=== PATIENT | male | born 1965 | race Caucasian/White ===

== ENCOUNTER 2017-11-29 09:04 | Emergency (ER) | payer BC ==
[2017-11-29 09:08] VITALS: RESP 18
[2017-11-29] MEDS ORDERED: SODIUM CHLORIDE 0.9% 1,000 ML IV STA ×2 (09:19)
[2017-11-29] MEDS ORDERED: ONDANSETRON 4 MG/2 ML VIAL IVP STA (09:19)
[2017-11-29] MEDS ORDERED: RX INFO: IV CONTRAST WAS GIVEN 1 EACH MISC MISCELLANE PRN (09:19)
[2017-11-29] MEDS ORDERED: MORPHINE SULFATE 4MG/4ML SYRG IV STA (09:19)
[2017-11-29] MEDS ORDERED: KETOROLAC 30 MG/ML 1 ML VIAL IVP STA (09:19)
--- NOTE | 2017-11-29 09:22 | ED ---
Abdominal Pain HPI - General Chief Complaint: Abdominal Pain Stated Complaint: appendicitis Time Seen by Provider: 11/29/17 09:11 Source: patient, RN notes reviewed, old records reviewed Mode of arrival: ambulatory Limitations: no limitations - History of Present Illness Initial Comments: 52-year-old male presents emergency Department chief complaint right lower quadrant abdominal pain for the past 4 days. He reports he went to a clinic and encouraged him to come here on . He states that he wanted to go home. He states the pain subsided per one day but then returned Wednesday and Wednesday into today. He reports he felt chilled but has no fevers. He's had normal bowel movements, normal urination. Concern for appendicitis. He states the pain starts in his umbilical region and radiates towards the right lower quadrant. Worse with going over bumps in the car. Patient with his history of umbilical hernia and associated with a follow-up with a surgeon in December. He reports that he has had no previous surgeries. He states that this pain is different than his hernia pain for the past. - Related Data Home Medications Medication Instructions Recorded Confirmed Aspirin 81 mg PO DAILY 11/29/17 11/29/17 [id number] 2 tab PO Q4HR PRN 11/29/17 11/29/17 [Excedrin] Lisinopril [Zestril] 10 mg PO DAILY 11/29/17 11/29/17 Lovastatin [Mevacor] 20 mg PO DAILY 11/29/17 11/29/17 amLODIPine [Norvasc] 10 mg PO DAILY 11/29/17 11/29/17 Previous Rx's Medication Instructions Recorded Bisacodyl [Dulcolax] 10 mg PO ONCE #20 tablet. 11/29/17 Allergies Allergy/AdvReac Type Severity Reaction Status Date / Time tetracycline Allergy Rash/Hives Verified 11/29/17 09:24 MOLINA SPROUTS Allergy Unknown Uncoded 11/29/17 09:24 Review of Systems ROS Statement: Those systems with pertinent positive or pertinent negative responses have been documented in the HPI. ROS Other: All systems not noted in ROS Statement are negative. Past Medical History Past Medical History: No Reported History History of Any Multi-Drug Resistant Organisms: None Reported Past Surgical History: No Surgical Hx Reported Past Psychological History: No Psychological Hx Reported Smoking Status: Current every day smoker Past Alcohol Use History: Rare Past Drug Use History: None Reported General Exam - General Exam Comments Initial Comments: 52-year-old male. Alert and oriented. No distress. Limitations: no limitations General appearance: alert, in no apparent distress Head exam: Present: atraumatic, normocephalic, normal inspection Eye exam: Present: normal appearance, PERRL, EOMI. Absent: scleral icterus, conjunctival injection, periorbital swelling ENT exam: Present: normal exam, mucous membranes moist Neck exam: Present: normal inspection. Absent: tenderness, meningismus, lymphadenopathy Respiratory exam: Present: normal lung sounds bilaterally. Absent: respiratory distress, wheezes, rales, rhonchi, stridor Cardiovascular Exam: Present: regular rate, normal rhythm, normal heart sounds. Absent: systolic murmur, diastolic murmur, rubs, gallop, clicks GI/Abdominal exam: Present: soft, tenderness (Patient has significant right lower quadrant tenderness.), normal bowel sounds. Absent: distended, guarding, rebound, rigid Extremities exam: Present: normal inspection, full ROM, normal capillary refill. Absent: tenderness, pedal edema, joint swelling, calf tenderness Back exam: Present: normal inspection, full ROM Neurological exam: Present: alert, oriented X3, CN II-XII intact Psychiatric exam: Present: normal affect, normal mood Skin exam: Present: warm, dry, intact, normal color. Absent: rash Course Vital Signs 11/29/17 11/29/17 11/29/17 09:05 10:36 12:21 Temperature 99 F 97.7 F 97.8 F Pulse Rate 107 H 87 78 Respiratory 18 18 18 Rate Blood Pressure 156/87 120/60 121/59 O2 Sat by Pulse 94 L 94 L 95 Oximetry Medical Decision Making - Medical Decision Making 52-year-old male presents emergency Department chief complaint right lower quadrant abdominal pain for the past 4 days. He reports he went to a clinic and encouraged him to come here on . He states that he wanted to go home. He states the pain subsided per one day but then returned Wednesday and Wednesday into today. He reports he felt chilled but has no fevers. He's had normal bowel movements, normal urination. Patient has RLQ tenderness. CT scan was completed and shows no appendicitis. He is afebrile. Discussed Dr. Noel. Patient will be discharged home for follow up by PCP in one day. Disucssed strict return parameters such as fever or worsening pain. All questions answered and return parameters discussed. - Lab Data Result diagrams: 11/29/17 09:20 11/29/17 09:20 Lab Results 11/29/17 11/29/17 11/29/17 Range/Units 09:20 09:20 09:20 WBC 14.2 H (3.8-10.6) k/uL RBC 4.56 (4.30-5.90) m/uL Hgb 13.8 (13.0-17.5) gm/dL Hct 40.7 (39.0-53.0) % MCV 89.2 (80.0-100.0) fL MCH 30.2 (25.0-35.0) pg MCHC 33.8 (31.0-37.0) g/dL RDW 12.8 (11.5-15.5) % Plt Count 358 (150-450) k/uL Neutrophils % 70 % Lymphocytes % 24 % Monocytes % 4 % Eosinophils % 1 % Basophils % 0 % Neutrophils # 10.0 H (1.3-7.7) k/uL Lymphocytes # 3.3 (1.0-4.8) k/uL Monocytes # 0.5 (0-1.0) k/uL Eosinophils # 0.1 (0-0.7) k/uL Basophils # 0.1 (0-0.2) k/uL Sodium 142 (137-145) mmol/L Potassium 3.6 (3.5-5.1) mmol/L Chloride 106 (98-107) mmol/L Carbon Dioxide 23 (22-30) mmol/L Anion Gap 13 mmol/L BUN 7 L (9-20) mg/dL Creatinine 0.68 (0.66-1.25) mg/dL Est GFR (CKD-EPI)AfAm >90 (>60 ml/min/1.73 sqM) Est GFR (CKD-EPI)NonAf >90 (>60 ml/min/1.73 sqM) Glucose 85 (74-99) mg/dL Plasma Lactic Acid Antolin 1.0 (0.7-2.0) mmol/L Calcium 9.5 (8.4-10.2) mg/dL Total Bilirubin 0.4 (0.2-1.3) mg/dL AST 26 (17-59) U/L ALT 38 (21-72) U/L Alkaline Phosphatase 89 (38-126) U/L Total Protein 7.0 (6.3-8.2) g/dL Albumin 4.1 (3.5-5.0) g/dL Amylase 48 (30-110) U/L Lipase 73 (23-300) U/L Urine Color Urine Appearance (Clear) Urine pH (5.0-8.0) Ur Specific [place] (1.001-1.035) Urine Protein (Negative) Urine Glucose (UA) (Negative) Urine Ketones (Negative) Urine Blood (Negative) Urine Nitrite (Negative) Urine Bilirubin (Negative) Urine Urobilinogen (<2.0) mg/dL Ur Leukocyte Esterase (Negative) 11/29/17 Range/Units 09:20 WBC (3.8-10.6) k/uL RBC (4.30-5.90) m/uL Hgb (13.0-17.5) gm/dL Hct (39.0-53.0) % MCV (80.0-100.0) fL MCH (25.0-35.0) pg MCHC (31.0-37.0) g/dL RDW (11.5-15.5) % Plt Count (150-450) k/uL Neutrophils % % Lymphocytes % % Monocytes % % Eosinophils % % Basophils % % Neutrophils # (1.3-7.7) k/uL Lymphocytes # (1.0-4.8) k/uL Monocytes # (0-1.0) k/uL Eosinophils # (0-0.7) k/uL Basophils # (0-0.2) k/uL Sodium (137-145) mmol/L Potassium (3.5-5.1) mmol/L Chloride (98-107) mmol/L Carbon Dioxide (22-30) mmol/L Anion Gap mmol/L BUN (9-20) mg/dL Creatinine (0.66-1.25) mg/dL Est GFR (CKD-EPI)AfAm (>60 ml/min/1.73 sqM) Est GFR (CKD-EPI)NonAf (>60 ml/min/1.73 sqM) Glucose (74-99) mg/dL Plasma Lactic Acid Antolin (0.7-2.0) mmol/L Calcium (8.4-10.2) mg/dL Total Bilirubin (0.2-1.3) mg/dL AST (17-59) U/L ALT (21-72) U/L Alkaline Phosphatase (38-126) U/L Total Protein (6.3-8.2) g/dL Albumin (3.5-5.0) g/dL Amylase (30-110) U/L Lipase (23-300) U/L Urine Color Colorless Urine Appearance Clear (Clear) Urine pH 6.5 (5.0-8.0) Ur Specific [place] 1.001 (1.001-1.035) Urine Protein Negative (Negative) Urine Glucose (UA) Negative (Negative) Urine Ketones Negative (Negative) Urine Blood Negative (Negative) Urine Nitrite Negative (Negative) Urine Bilirubin Negative (Negative) Urine Urobilinogen <2.0 (<2.0) mg/dL Ur Leukocyte Esterase Negative (Negative) - Radiology Data Radiology results: report reviewed Colonint interpostion anterior to left lobe of liver. Descending and sigmoid colon are decompressed, difficult to exclude mucosal abnormality. Non specific findings described. Read by Dr. Mondragon. Disposition Clinical Impression: RLQ abdominal pain Disposition: HOME SELF-CARE Condition: Good Instructions: Abdominal Pain (ED) Additional Instructions: Patient is return to the emergency department if any alarming signs or symptoms occur including fever or worsening abdominal pain. Follow-up with primary care provider in next 1-2 days. Prescriptions: Bisacodyl [Dulcolax] 10 mg PO ONCE #20 tablet.dr Is patient prescribed a controlled substance at discharge?: No If prescribed controlled substance>3 days was MAPS reviewed?: No When asked, does pt state using other controlled substances?: No Referrals: Josr Grande MD [Primary Care Provider] - 1-2 days Time of Disposition: 12:08
[2017-11-29 09:40] LABS: Basophils # (A) 0.1 k/uL (0-0.2); Basophils % (A) 0 %; Eosinophils # (A) 0.1 k/uL (0-0.7); Eosinophils % (A) 1 %; HCT 40.7 % (39.0-53.0); HGB 13.8 gm/dL (13.0-17.5); Lymphocytes # (A) 3.3 k/uL (1.0-4.8); Lymphocytes % (A) 24 %; MCH 30.2 pg (25.0-35.0); MCHC 33.8 g/dL (31.0-37.0); MCV 89.2 fL (80.0-100.0); Mean Platelet Volume 6.5; Monocytes # (A) 0.5 k/uL (0-1.0); Monocytes % (A) 4 %; Neutrophils % (A) 70 %; Platelet Count 358 k/uL (150-450); RBC 4.56 m/uL (4.30-5.90); RDW 12.8 % (11.5-15.5); WBC 14.2 k/uL (3.8-10.6)
[2017-11-29 09:43] LABS: Appearance,Urine Clear (Clear); Bilirubin,Urine Negative (Negative); Blood,Urine Negative (Negative); Color,Urine Colorless; Glucose,Urine (UA) Negative (Negative); Ketones,Urine Negative (Negative); Leukocyte Esterase,Urine Negative (Negative); Nitrite,Urine Negative (Negative); PH, Urine 6.5 (5.0-8.0); Protein,Urine Negative (Negative); Specific Gravity,Urine 1.001 (1.001-1.035); Urobilinogen,Urine <2.0 mg/dL (<2.0)
[2017-11-29 09:51] LABS: ALT 38 U/L (21-72); AST 26 U/L (17-59); Albumin 4.1 g/dL (3.5-5.0); Alkaline Phosphatase 89 U/L (38-126); Amylase 48 U/L (30-110); Anion Gap 13 mmol/L; Blood Urea Nitrogen 7 mg/dL (9-20); Calcium 9.5 mg/dL (8.4-10.2); Carbon Dioxide 23 mmol/L (22-30); Chloride 106 mmol/L (98-107); Glucose 85 mg/dL (74-99); Lipase 73 U/L (23-300); Potassium 3.6 mmol/L (3.5-5.1); Sodium 142 mmol/L (137-145); Total Bilirubin 0.4 mg/dL (0.2-1.3)
--- NOTE | 2017-11-29 11:05 | CT ---
EXAMINATION TYPE: CT abdomen pelvis w con DATE OF EXAM: 11/29/2017 COMPARISON: NONE HISTORY: Right lower quadrant pain x [address] DLP: 1693 mGycm Automated exposure control for dose reduction was used. TECHNIQUE: Helical acquisition of images from the lung bases through the pelvis have been completed. CONTRAST: Performed without Oral Contrast and with IV Contrast, patient injected with 100 mL of Isovue M300. FINDINGS: Possible small hiatal hernia present. There is an umbilical hernia containing fat. LUNG BASES: No significant abnormality is appreciated. Calcified granuloma present on axial image 1 r ight lower lobe. AORTA: No significant abnormality is appreciated. LIVER/GB: Liver shows low attenuation and is enlarged, consider hepatic steatosis, gallbladder is unr emarkable. PANCREAS: No significant abnormality is seen. SPLEEN: No significant abnormality is seen. ADRENALS: No significant abnormality is seen. KIDNEYS: Punctate nonobstructive calculus is present in the upper pole collecting system region of th e right kidney, cortical cyst present at the lower pole of the left kidney measuring approximately 16 mm. REPRODUCTIVE ORGANS: Prostate shows some associated calcifications. BOWEL: Colonic interposition present anterior to the liver left lobe of liver. Descending and sigmoi d colon are decompressed, difficult to exclude mucosal abnormality. FREE AIR: No Free Air visible. ASCITES: None visible. PELVIC ADENOPATHY: None visualized. RETROPERITONEAL ADENOPATHY: No Retroperitoneal Adenopathy visible. URINARY BLADDER: Mildly thickened wall could be due to chronic outlet obstruction. OSSEOUS STRUCTURES: No significant abnormality is seen. IMPRESSION: NONSPECIFIC FINDINGS DESCRIBED ABOVE.
[2017-11-29 12:22] VITALS: BP 121/59; PULSE 78; TEMP 97.8
== END 2017-11-29 12:26 | disposition home or self-care (01) ==
LOC: EC 09:04
DX: R10.31 Right lower quadrant pain (principal); F17.200 Nicotine dependence, unspecified, uncomplicated; Z79.82 Long term (current) use of aspirin; Z79.899 Other long term (current) drug therapy; Z88.1 Allergy status to other antibiotic agents; Z91.018 Allergy to other foods
CPT/HCPCS: 99284; 96374; 96375; 96361 ×2; 36415; 80053; 82150; 83605; 83690; 85025; 81003; 87040; 74177; J2405; J1885; Q9967

== ENCOUNTER → 2018-02-04 | Day surgery (SDC) | payer BC ==
[2018-02-01 14:58] VITALS: BMI 32.3
[~2018-02-04] MED LIST: ALBUTEROL NEBULIZED 2.5 MG/3 ML INHALATION STA; BUPIVACAINE (PF) 0.5% 30 ML VIAL SQ ONE; DEXAMETHASONE SOD PHOSPHATE 10 MG/ML 1 ML VIAL IV ONE; GLYCOPYRROLATE 0.2 MG/ML 2 ML VIAL ONE; HEPARIN SODIUM,PORCINE 5,000 UNIT/ML 1 ML VIAL SQ ONE; HYDROcodone/APAP 5-325MG 1 EACH TAB PO ONE; IBUPROFEN IV 400 MG in SODIUM CHLORIDE 0.9% 250 ML IV ONE; LIDOCAINE 1% 20 ML VIAL (10MG/ML) FOR IV START INTRADERMA PRN; LIDOCAINE 1% INJ 10MG/ML (20 ML MDV) ONE; MIDAZOLAM 2 MG/2 ML VIAL IV PRN; MIDAZOLAM 2 MG/2 ML VIAL ONE; NEOSTIGMINE 1 MG/ML 10 ML VIAL ONE; ONDANSETRON 4 MG/2 ML VIAL IVP ONE; PROPOFOL 10 MG/ML 20 ML VIAL IV ONE; ROCURONIUM BROMIDE 10 MG/ML 10 ML VIAL IV ONE; SCOPOLAMINE 1.5MG/72HR PATCH TRANSDERM ONE; SUCCINYLCHOLINE CHLORIDE VIAL 200 MG/10 ML VIAL IV ONE; ceFAZolin IN SWFI 2 GM/20 ML SYRINGE IVP ONE; fentaNYL (PF) 50 MCG/ML 2 ML AMP ONE
--- NOTE | 2018-02-04 07:07 | P.GSHP ---
History of Present Illness H&P Date: 02/04/18 CHIEF COMPLAINT: Inguinal hernia, right and umbilical hernia HISTORY OF PRESENT ILLNESS: The patient is a 52-year-old male who presents with a history of swelling and pain along the right groin and umbilicus. He's noted increased swelling including pain of the area. Now he presents for repair of his inguinal hernia and umbilicus. PAST MEDICAL HISTORY: Please see list. PAST SURGICAL HISTORY: Please see list. MEDICATIONS: Please see list. ALLERGIES: Please see list. SOCIAL HISTORY: No illicit drug use FAMILY HISTORY: No reports of Crohn disease or ulcerative colitis. REVIEW OF ORGAN SYSTEMS: CONSTITUTIONAL: No reports of fevers or chills. No reports of weight loss despite prior attempts. GI: Denies any blood in stools or constipation. PHYSICAL EXAM: VITAL SIGNS: Stable GENERAL: Well-developed pleasant male in no acute distress. HEENT: No scleral icterus. Extraocular movements grossly intact. Moist buccal mucosa. NECK: Supple without lymphadenopathy. CHEST: Unlabored respirations. Equal bilateral excursions. CARDIOVASCULAR: Regular rate and rhythm. Distal 2+ pulses. ABDOMEN: Soft, nondistended. No peritoneal signs. Palpable defect of the right groin. MUSCULOSKELETAL: No clubbing, cyanosis, or edema. ASSESSMENT: 1. Inguinal hernia, right 2. Umbilical hernia PLAN: 1. Recommend proceeding with a robotic umbilical and inguinal repair with mesh with possible bilateral approach. 2. Benefits and risks of surgical intervention was discussed including possibility of open technique. 3. DVT prophylaxis. 4. Antibiotic prophylaxis. Past Medical History Past Medical History: Hyperlipidemia, Hypertension History of Any Multi-Drug Resistant Organisms: None Reported Past Surgical History: No Surgical Hx Reported Additional Past Anesthesia/Blood Transfusion Reaction / Comment(s): never had anesthesia in the past Past Psychological History: Anxiety Smoking Status: Current every day smoker Past Alcohol Use History: None Reported Past Drug Use History: None Reported - Past Family History Mother Family Medical History: No Reported History Medications and Allergies Home Medications Medication Instructions Recorded Confirmed Type amLODIPine [Norvasc] 10 mg PO QAM 11/29/17 02/01/18 History Atorvastatin [Lipitor] 20 mg PO QAM 02/01/18 02/01/18 History Lisinopril [Zestril] 10 mg PO QAM 02/01/18 02/01/18 History Allergies Allergy/AdvReac Type Severity Reaction Status Date / Time tetracycline Allergy Rash/Hives Verified 11/29/17 09:24 MOLINA SPROUTS Allergy Rash/Hives Uncoded 02/01/18 14:48
[2018-02-04] MEDS: LACTATED RINGERS 1,000 ML IV SCH (10:20)
--- NOTE | 2018-02-04 13:25 | P.PCN ---
Date of Procedure: 02/04/18 Preoperative Diagnosis: Right inguinal hernia, umbilical hernia Postoperative Diagnosis: Incarcerated right inguinal hernia, initial and direct; incarcerated umbilical hernia initial, right inguinal/scrotal lipoma Procedure(s) Performed: Excision of right inguinal lipoma, robotic-assisted repair of incarcerated right inguinal hernia with mesh, robotic-assisted repair of incarcerated umbilical hernia without mesh Anesthesia: GETA, local Surgeon: Beata Granado Estimated Blood Loss (ml): 5 Pathology: other (Incarcerated umbilical hernia, right inguinal contents and lipoma) Condition: stable Disposition: same day Operative Findings: Large incarcerated umbilical hernia with large right inguinal and scrotal inguinal lipoma, initial right indirect inguinal hernia Oversew of umbilical hernia defect 1 cm
[2018-02-04] MEDS: HYDROmorphone 0.5 MG/0.5 ML SYRINGE IVP PRN ×4 (13:26→14:10)
[2018-02-04 17:04] VITALS: BP 128/81; PULSE 88; RESP 18; TEMP 98.4
--- NOTE | 2018-02-06 23:08 | P.OP ---
Date of Procedure: 02/04/18 Description of Procedure: Date of Procedure: 02/04/18 SURGEON: DEBBIE ROBERT MD PREOPERATIVE DIAGNOSES: 1. History of right inguinal hernia 2. Umbilical hernia POSTOPERATIVE DIAGNOSES: 1. Right inguinal hernia, initial, direct, incarcerated 2. Umbilical hernia, initial, incarcerated, 1 cm 3. Right inguinal/scrotal lipoma OPERATION: 1. Robotic assisted da Pablo Xi laparoscopic right incarcerated inguinal hernia repair with ventralight ST mesh, 11.4 cm. 2. Robotic-assisted da Pablo Xi laparoscopic repair of initial incarcerated umbilical hernia 1 cm without mesh 3. Excision of incarcerated right inguinal/scrotal lipoma Anesthesia: GETA, local Estimated Blood Loss (ml): 5 Pathology: other (Incarcerated umbilical hernia, right inguinal contents and lipoma) Condition: stable Disposition: same day COMPLICATIONS: None. Operative Findings: 1. Large incarcerated umbilical hernia 2. Large right inguinal and scrotal inguinal lipoma 3. Initial right indirect inguinal hernia 4. Oversew of umbilical hernia defect 1 cm 5. Console time 61 minutes INDICATIONS: The patient is a 52-year-old gentleman who presents with history of right inguinal pain and umbilical hernia. Now presents for definitive surgical intervention. Laparoscopic versus open and robotic approaches were discussed. Benefits and risks including bleeding, infection, and injury to the vas deferens as well as sterility and chronic groin pain were reviewed. Placement of mesh was also described. Informed consent was obtained. DESCRIPTION: In the preoperative area, the patient was marked with indelible marker along the left groin. The patient was brought to the operating room and initially laid in supine position. After general induction, the abdomen had been prepped and draped in standard sterile fashion. Ioban draping was also placed. Prior to incision, a timeout protocol was confirmed with surgical team regarding patient's name including procedures to be performed and location along the left groin. Initial positioning for the robotic assisted ports were selected whereby 20 cm superior to the target anatomy, 0 degree 5 mm laparoscopic trocar entry was performed at the left upper quadrant. The abdomen was insufflated to 15 mmHg which he had tolerated well. Diagnostic laparoscopy demonstrated indirect right inguinal hernia included an incarcerated umbilical hernia. No defects were identified at the left groin. Next, along the epigastrium, 8 mm robot trocar was placed. An 8-mm robotic trocar was placed under direct visualization at the right upper quadrant. The 5 mm port was exchanged for an 8 mm trocar. All trocars were positioned 8 to 10-cm apart from each other. The [employer] robot was primed, draped, prepared for docking along the left side of the patient. I then went to the [employer] console. The mental health assistant was at bedside for exchange of the robot arms and equipment. At the right groin, a 2 cm indirect inguinal hernia was identified. The hernia sac was evaginated whereby the peritoneum was scored using Endo scissors with cautery. Once completely reduced into the abdominal cavity, the peritoneal sac of the hernia was stripped with a lipoma identified and incarcerated along the scrotum. The sac was resected and then passed off for further pathological analysis. The size of the hernia defect was 2 cm with intraoperative films obtained. Using 2-0 V-LOC the peritoneal defect of the right inguinal hernia site was closed using a pursestring suture. The defect was found to be completely closed with complete reduction of the right inguinal hernia was confirmed. As an onlay, an 11.[address] mesh by [employer] was cut in half and entered into the abdominal cavity via the 8 mm trocar. The mesh was tacked to the pelvis using 2-0 VLOC x 9-inch length sutures. Attention was brought to the umbilical hernia repair portion of the procedure. Fascial defect of 2 cm was identified at the umbilicus where an incarcerated umbilical hernia was identified also containing fat. The incarcerated contents was reduced as the peritoneal fat was cleaned from the abdominal wall. Next, hemostasis was checked with cautery. The hernia defect of 1-cm was oversewn using #1 Stratafix with fascial imbrication 3. A final endoscopic imaging was obtained. The robot was undocked from the patient's bedside. I then rescrubbed into the case. Insufflation was released from the abdominal cavity and all instruments were removed from the abdominal cavity. Additional palm pressure was applied along the right groin as well as releasing any air along the scrotum and right groin. The rest of incisions were reapproximated using 4-0 Monocryl in a running subcuticular fashion. Local anesthetic was placed along the incision including for a groin block. Incisions were cleansed using dilute hydrogen peroxide. Liquid glue was applied to the skin. At the end of the procedure, the needle, sponge and instrument counts had been verified correct by the surgical oncologist. The patient had tolerated the procedure well and was taken to the postanesthesia care unit in stable condition. Intraoperative findings were described to the patient's family.
== END | disposition home or self-care (01) ==
LOC: OR 09:46
PROVIDERS: ATTEND Surgery Plastic and Reconstructive Surgery
DX: K42.0 Umbilical hernia with obstruction, without gangrene (principal); K40.30 Unilateral inguinal hernia, with obstruction, without gangrene, not specified as recurrent; D17.72 Benign lipomatous neoplasm of other genitourinary organ; I10 Essential (primary) hypertension; E78.5 Hyperlipidemia, unspecified; F41.9 Anxiety disorder, unspecified; F17.200 Nicotine dependence, unspecified, uncomplicated; Z79.899 Other long term (current) drug therapy; Z88.1 Allergy status to other antibiotic agents; Z91.018 Allergy to other foods
CPT/HCPCS: 94640; 88302; 49650; 49653; C1781; J2250; J0330; J1644; J1100; J2710; J2405; J2001; J3010; J1741; J2704; J1170; J0690

== ENCOUNTER 2018-02-14 13:26 | Emergency (ER) | payer BC ==
--- NOTE | 2018-02-14 15:06 | ED ---
General Adult HPI - General Chief complaint: Urogenital Stated complaint: Male Time Seen by Provider: 02/14/18 13:35 Source: patient, RN notes reviewed Mode of arrival: ambulatory Limitations: no limitations - History of Present Illness Initial comments: This is a 52-year-old male who presents emergency Department stating that [address] Salinas did an inguinal hernia repair. Patient states since that time his right testicle swollen and becoming more tender. Patient states he called the office today and they told him come to the emergency department. Patient denies any abdominal pain patient denies any nausea vomiting. Patient denies any recent fever chills. Patient denies any trauma to the area. Patient denies any dysuria hematuria urinary frequency. Patient denies any urinary retention. - Related Data Home Medications Medication Instructions Recorded Confirmed amLODIPine [Norvasc] 10 mg PO DAILY 11/29/17 02/14/18 Atorvastatin [Lipitor] 20 mg PO DAILY 02/01/18 02/14/18 Lisinopril [Zestril] 10 mg PO DAILY 02/01/18 02/14/18 Aspirin EC [Ecotrin Low Dose] 81 mg PO DAILY 02/14/18 02/14/18 Allergies Allergy/AdvReac Type Severity Reaction Status Date / Time tetracycline Allergy Rash/Hives Verified 02/14/18 15:12 MOLINA SPROUTS Allergy Rash/Hives Uncoded 02/14/18 13:40 Review of Systems ROS Statement: Those systems with pertinent positive or pertinent negative responses have been documented in the HPI. ROS Other: All systems not noted in ROS Statement are negative. Past Medical History Past Medical History: Hyperlipidemia, Hypertension History of Any Multi-Drug Resistant Organisms: None Reported Past Surgical History: Hernia Repair Additional Past Surgical History / Comment(s): right inguinal hernia Additional Past Anesthesia/Blood Transfusion Reaction / Comment(s): never had anesthesia in the past Past Psychological History: Anxiety Smoking Status: Current every day smoker Past Alcohol Use History: None Reported Past Drug Use History: None Reported - Past Family History Mother Family Medical History: No Reported History General Exam - General Exam Comments Initial Comments: GENERAL Patient is well-developed and well-nourished. Patient is in mild distress. EYES Patient's pupils are equal and round. Extraocular motion is intact SKIN Unremarkable NEURO The patient is alert and oriented 3 Skin: Scrotum swollen and testicle appears to be tender. PYSCH Patient has normal interpersonal interactions. MUSCULOSKELETAL All 4 extremities have full range of motion Limitations: no limitations Course Vital Signs 02/14/18 02/14/18 13:38 16:07 Temperature 98.5 F Pulse Rate 87 78 Respiratory 18 16 Rate Blood Pressure 144/77 134/78 O2 Sat by Pulse 96 100 Oximetry Medical Decision Making - Medical Decision Making Ultrasound shows no evidence of torsion but does show bilateral hydroceles Disposition Clinical Impression: Hydrocele, bilateral Disposition: HOME SELF-CARE Condition: Good Instructions: Hydrocele (ED) Is patient prescribed a controlled substance at d/c from ED?: No Referrals: Josr Grande MD [Primary Care Provider] - 1-2 days Beata Granado MD [STAFF PHYSICIAN] - 1-2 days Time of Disposition: 16:25
--- NOTE | 2018-02-14 16:21 | US ---
EXAMINATION TYPE: US scrotum with doppler. Grayscale and color Doppler Duplex imaging performed of t leon scrotum. DATE OF EXAM: 02/14/2018 COMPARISON: NONE CLINICAL HISTORY: Pain. Right testicular swelling x 3 days with occasional pain, hernia surgery 10 da ys ago. EXAM MEASUREMENTS: TESTICLES: Right Testicle: 5.2 x 3.3 x 3.0 cm Left Testicle: 4.7 x 3.3 x 2.0 cm EPIDIDYMIS HEAD: Right Epididymis: 0.8 x 1.5 x 1.2 cm Left Epididymis: 0.9 x 1.5 x 1.2 cm Doppler performed to assess for testicular vascularity; good bilateral color flow and waveforms are s een. There is no evidence of testicular torsion. Presence of hydroceles: right 5.5cm, left 3.2cm Presence of varicoceles: no There are bilateral hydroceles Testicular echotexture is homogenous and symmetric. IMPRESSION: No evident testicular torsion. Bilateral hydroceles
[2018-02-14 16:46] VITALS: BP 157/83; PULSE 82; RESP 20; TEMP 98
== END 2018-02-14 16:45 | disposition home or self-care (01) ==
LOC: EC 13:26
DX: N43.3 Hydrocele, unspecified (principal); E78.5 Hyperlipidemia, unspecified; I10 Essential (primary) hypertension; F17.200 Nicotine dependence, unspecified, uncomplicated; Z79.82 Long term (current) use of aspirin; Z79.899 Other long term (current) drug therapy; Z88.1 Allergy status to other antibiotic agents; Z91.018 Allergy to other foods
CPT/HCPCS: 76870; 93975; 99283

== ENCOUNTER → 2018-03-29 | Outpatient (CLI) | payer BC ==
--- NOTE | 2018-03-29 09:37 | CT ---
EXAMINATION TYPE: CT abdomen pelvis wo con DATE OF EXAM: 03/29/2018 HISTORY: Rt flank pain, groin pain, recent inguinal hernia repair CT DLP: 927 mGycm. Automated Exposure Control for Dose Reduction was Utilized. TECHNIQUE: CT scan of the abdomen and pelvis is performed without oral or IV contrast. COMPARISON: CT abdomen and pelvis November 29, 2017 FINDINGS: Within the limitations of a non-contrast study, the following observations are made. LUNG BASES: Overall slight mosaic attenuation lung bases is redemonstrated. LIVER/GB: No significant abnormality is appreciated. PANCREAS: No significant abnormality is seen. SPLEEN: No significant abnormality is seen. ADRENALS: No significant abnormality is seen. KIDNEYS: There is stable 1.5 cm low dense exophytic lesion posteriorly lower pole level left kidney f avoring simple cyst Hounsfield units average 16. There is stable 2 mm calculus upper pole level right kidney coronal image 68. There is mild asymmetric left-sided hydroureter without obstructing calculu s or significant pyelocaliectasis. Bladder wall is mild to minimally thickened up to 4 to 5 mm simila r appearance to prior study. BOWEL: No suspicious small or large bowel dilatation is seen. Normal-appearing appendix from medial a spect of cecum is noted. Evaluation bowel is slightly suboptimal secondary to lack of enteric contras t. GENITAL ORGANS: Central zone calcifications are seen in slightly enlarged prostate gland bulging on b ladder base, underlying BPH causing outlet obstruction is suspected. Correlate clinically. LYMPH NODES: No greater than 1cm abdominal or pelvic lymph nodes are appreciated. OSSEOUS STRUCTURES: Reversal of normal curvature near thoracolumbar junction is present. OTHER: Mild calcified plaque of aorta extends into branch vessels. Scattered subcentimeter lymph nodes in bilateral groin are redemonstrated. No suspicious fat or bowel containing inguinal hernias are present bilaterally. IMPRESSION: No recurrent hernia. No suspicious finding seen to account for patient's persistent sympt oms of right flank and groin pain.
== END | disposition home or self-care (01) ==
LOC: RADCTMAIN 08:45
PROVIDERS: ATTEND Surgery Plastic and Reconstructive Surgery
DX: R10.9 Unspecified abdominal pain (principal); Z88.1 Allergy status to other antibiotic agents
CPT/HCPCS: 74176

== ENCOUNTER → 2018-09-05 | Outpatient (CLI) | payer BC ==
--- NOTE | 2018-09-05 17:46 | CT ---
EXAMINATION TYPE: CT abdomen pelvis wo con DATE OF EXAM: 09/05/2018 COMPARISON: 03/29/2018 HISTORY: Right groin pain x2 weeks. CT DLP: 873.5 mGycm Automated exposure control for dose reduction was used. TECHNIQUE: Helical acquisition of images was performed from the lung bases through the pelvis. FINDINGS: Within the limitations of a non-contrast study, the following observations are made. LUNG BASES: No significant abnormality is appreciated. LIVER/GB: No significant abnormality is appreciated. PANCREAS: No significant abnormality is seen. SPLEEN: No significant abnormality is seen. ADRENALS: No significant abnormality is seen. KIDNEYS: Unremarkable. FREE AIR: No free air is visualized RETROPERITONEAL ADENOPATHY: None visualized REPRODUCTIVE ORGANS: No significant abnormality is seen URINARY BLADDER: No significant abnormality is seen. PELVIC ADENOPATHY: None visualized. OSSEOUS STRUCTURES: No significant abnormality is seen. BOWEL: No significant abnormality is seen. IMPRESSION: No recurrent hernia; no CT finding to account for patient's symptoms of right groin pain.
== END ==
LOC: RADCTMAIN 16:52
PROVIDERS: ATTEND Nurse Practitioner Adult Health
DX: R10.9 Unspecified abdominal pain (principal)
CPT/HCPCS: 74176

== ENCOUNTER → 2018-09-06 | Outpatient (CLI) | payer BC ==
--- NOTE | 2018-09-06 13:47 | US ---
EXAMINATION TYPE: US scrotum with doppler. Grayscale and color Doppler Duplex imaging performed of petr quintero scrotum. DATE OF EXAM: 09/06/2018 COMPARISON: Prior scrotal ultrasound February 14, 2018. CLINICAL HISTORY: N43.3 Hydrocele. EXAM MEASUREMENTS: TESTICLES: Right Testicle: 5.7 x 3.1 x 3.4 cm Left Testicle: 4.7 x 2.8 x 3.4 cm EPIDIDYMIS HEAD: Right Epididymis: 1.0 cm Left Epididymis: 0.7 cm Presence of hydroceles: Bilateral hydroceles worse on right, measuring 5.6 x 2.5 x 4.7cm, left measu ring 2.6 x 1.6 x 2.4cm Presence of varicoceles: no Mild scattered calcifications seen on left. Satisfactory blood flow to right testicle on color images. Color images to left testicle not performe d on today's study. IMPRESSION: Moderate bilateral scrotal fluid collections right greater than left are redemonstrated w ithout significant interval change.
== END | disposition home or self-care (01) ==
LOC: RADUSWWP 12:56
PROVIDERS: ATTEND Family Medicine
DX: N43.3 Hydrocele, unspecified (principal)
CPT/HCPCS: 76870